=== PATIENT | female | born 1960 | race Caucasian/White ===

== ENCOUNTER 2018-03-12 13:44 | Outpatient (CLI) | payer BC | END 2018-03-12 13:45 | disposition home or self-care (01) | LOC: BICMAMMO 13:44 | PROVIDERS: ATTEND Family Medicine | DX: Z12.31 Encounter for screening mammogram for malignant neoplasm of breast (principal) | CPT/HCPCS: 77063; 77067 ==

== ENCOUNTER 2019-02-26 07:32 | Outpatient (CLI) | payer BC ==
--- NOTE | 2019-02-26 08:32 | ULT ---
Renal ultrasound: 02/26/2019 COMPARISON: None HISTORY: Hematuria TECHNIQUE: Multiplanar grayscale sonographic imaging of the kidneys and urinary bladder obtained. FINDINGS: Right kidney measures 10.8 x 3.9 x 4.5 cm. Punctate cortical calcification noted within mid pole right kidney. No hydronephrosis or mass lesion noted. Detailed assessment of the left kidney is limited secondary to bowel gas. Left kidney measures approx imately 10.3 x 5.2 x 5.5 cm and demonstrates no hydronephrosis or mass lesion. Punctate calcifications suspected in upper pole of left kidney. Urinary bladder is grossly unremarkable. IMPRESSION: No hydronephrosis or mass lesion. Punctate renal cortical calcification bilaterally.
== END 2019-02-26 07:33 | disposition home or self-care (01) ==
LOC: BICULT 07:32
PROVIDERS: ATTEND Family Medicine
DX: R31.9 Hematuria, unspecified (principal); N28.89 Other specified disorders of kidney and ureter
CPT/HCPCS: 76770

== ENCOUNTER 2019-03-13 08:33 | Outpatient (CLI) | payer BC ==
--- NOTE | 2019-03-13 10:00 | MMO ---
Bilateral MAMMO Bilat Screen [facility]. CLINICAL HISTORY: Patient is 58 years old and is seen for screening. The patient has no family history of breast cancer. The patient has no personal history of cancer. VIEWS: The views performed were: bilateral craniocaudal with tomosynthesis; bilateral mediolateral oblique with tomosynthesis; and bilateral exaggerated craniocaudal. FILMS COMPARED: The present examination has been compared to prior imaging studies performed at [facility] on 08/20/2009 and 04/06/2011, and at [facility] on 12/14/2015 and 03/12/2018. MAMMOGRAM FINDINGS: The breasts are heterogeneously dense, which could obscure a lesion on mammography. There is an asymmetry seen in the posterior central region of the left breast. In the right breast, there are no suspicious masses, calcifications or areas of architectural distortion. IMPRESSION: ASYMMETRY IN THE LEFT BREAST REQUIRES ADDITIONAL EVALUATION. RECOMMEND DIAGNOSTIC MAMMOGRAM. ULTRASOUND MAY ALSO PROVE USEFUL AT RECALL. THE RESULTS OF THIS EXAM WERE SENT TO THE PATIENT. ACR BI-RADS Category 0 - Incomplete: Need additional imaging evaluation. [facility] will notify the patient of the need for additional imaging services. MAMMOGRAPHY NOTE: 1. A negative mammogram report should not delay a biopsy if a dominant of clinically suspicious mass is present. 2. Approximately 10% to 15% of breast cancers are not detected by mammography. 3. Adenosis and dense breasts may obscure an underlying neoplasm.
== END 2019-03-13 08:34 | disposition home or self-care (01) ==
LOC: BICMAMMO 08:33
PROVIDERS: ATTEND Family Medicine
DX: Z12.31 Encounter for screening mammogram for malignant neoplasm of breast (principal); N64.89 Other specified disorders of breast
CPT/HCPCS: 77063; 77067

== ENCOUNTER 2019-03-14 13:40 | Outpatient (CLI) | payer BC ==
--- NOTE | 2019-03-14 14:02 | MMO ---
Left Breast MAMMO Unilat Diag [facility]. CLINICAL HISTORY: Patient is 58 years old and is seen for additional evaluation requested from prior study. The patient has no family history of breast cancer. The patient has no personal history of cancer. VIEWS: The views performed were: left craniocaudal spot compression with tomosynthesis and left mediolateral with tomosynthesis. FILMS COMPARED: The present examination has been compared to prior imaging studies performed at [facility] on 04/06/2011, and at [facility] on 12/14/2015, 03/12/2018 and 03/13/2019. MAMMOGRAM FINDINGS: The breast is heterogeneously dense, which could obscure a lesion on mammography. The asymmetry seen at screening mammography does not persist at additional imaging, compatible with superimposed tissue. There are no suspicious masses, suspicious calcifications, or new areas of architectural distortion. IMPRESSION: THERE IS NO MAMMOGRAPHIC EVIDENCE OF MALIGNANCY. A ROUTINE FOLLOW-UP MAMMOGRAM IN 1 YEAR IS RECOMMENDED. THE RESULTS OF THIS EXAM WERE SENT TO THE PATIENT. ACR BI-RADS Category 2 - Benign finding MAMMOGRAPHY NOTE: 1. A negative mammogram report should not delay a biopsy if a dominant of clinically suspicious mass is present. 2. Approximately 10% to 15% of breast cancers are not detected by mammography. 3. Adenosis and dense breasts may obscure an underlying neoplasm.
== END 2019-03-14 13:41 | disposition home or self-care (01) ==
LOC: BICMAMMO 13:40
PROVIDERS: ATTEND Family Medicine
DX: R92.2 Inconclusive mammogram (principal)
CPT/HCPCS: G0279

== ENCOUNTER 2019-04-15 08:31 | Outpatient (CLI) | payer BC ==
--- NOTE | 2019-04-15 09:36 | CT ---
CT ABDOMEN AND PELVIS WITH AND WITHOUT CONTRAST: Date: 04/15/2019 COMPARISON: None. HISTORY: Intermittent right lower pelvic pain, hematuria. TECHNIQUE: Axial CT imaging obtained at 3 mm intervals from the lung bases through the pubic symphysi s with and without IV contrast using a CT urogram protocol. Coronal and sagittal reformatted imaging obtained. FINDINGS: The visualized lung bases are unremarkable. No free intraperitoneal air or fluid is seen. The liver, spleen, gallbladder, pancreas, adrenal glands, and kidneys demonstrate no acute findings. There is a tiny hypodensity within the lower pole of the left kidney laterally measuring 5 mm, too small to characterize. There is no nephrolithiasis or evidence of obstructive uropathy on either side . Limited assessment of the bowel without contrast is unremarkable. Mild scattered atherosclerotic calc ification of the abdominal aorta and its branches noted. Urographic phase imaging is unremarkable as well. The uterus is enlarged and heterogeneous, suggesting a fibroid uterus. Uterus measures approximately 7.4 x 8.4 x 8.3 cm. No lymphadenopathy noted within the abdomen or pelvis. Review of the osseous structures demonstrates lower lumbar spine degenerative change, primarily affec ting the lumbosacral junction. IMPRESSION: 1. No evidence for obstructive uropathy or nephrolithiasis on either side. No suspicious renal mass noted on either side. 2. Findings suggesting an enlarged fibroid uterus, which could be best assessed via ultrasound. Transcribed Date/Time: 04/15/2019 9:50 AM
[2019-04-15] MEDS ORDERED: ISOVUE-370 76%-LOCM 1 ML ONE (13:39)
== END 2019-04-15 08:32 | disposition home or self-care (01) ==
LOC: BICCT 08:31
PROVIDERS: ATTEND Urology
DX: R31.29 Other microscopic hematuria (principal)
CPT/HCPCS: 74178; 82565

== ENCOUNTER 2020-03-31 11:43 | Outpatient (CLI) | payer OTHER, SELFPAY ==
--- NOTE | 2020-03-31 13:32 | MMO ---
Bilateral MAMMO Bilat Screen [facility]. CLINICAL HISTORY: Patient is 59 years old and is seen for screening. The patient has no family history of breast cancer. The patient has no personal history of cancer. VIEWS: The views performed were: bilateral craniocaudal with tomosynthesis and bilateral mediolateral oblique with tomosynthesis. FILMS COMPARED: The present examination has been compared to prior imaging studies performed at [facility] on 12/14/2015, 03/12/2018, 03/13/2019 and 03/14/2019. This study has been interpreted with the assistance of computer-aided detection. MAMMOGRAM FINDINGS: The breasts are heterogeneously dense, which could obscure a lesion on mammography. There are no suspicious masses, suspicious calcifications, or new areas of architectural distortion. IMPRESSION: THERE IS NO MAMMOGRAPHIC EVIDENCE OF MALIGNANCY. A ROUTINE FOLLOW-UP MAMMOGRAM IN 1 YEAR IS RECOMMENDED. THE RESULTS OF THIS EXAM WERE SENT TO THE PATIENT. ACR BI-RADS Category 1 - Negative MAMMOGRAPHY NOTE: 1. A negative mammogram report should not delay a biopsy if a dominant of clinically suspicious mass is present. 2. Approximately 10% to 15% of breast cancers are not detected by mammography. 3. Adenosis and dense breasts may obscure an underlying neoplasm. Reported by: WIL JAMES MD Electonically Signed: [id number]
== END 2020-03-31 11:44 | disposition home or self-care (01) ==
LOC: BICMAMMO 11:43
PROVIDERS: ATTEND Family Medicine
DX: Z12.31 Encounter for screening mammogram for malignant neoplasm of breast (principal)
CPT/HCPCS: 77063; 77067

== ENCOUNTER 2021-07-20 09:33 | Outpatient (CLI) | payer BC | END 2021-07-20 09:34 | disposition home or self-care (01) | LOC: BICMAMMO 09:33 | PROVIDERS: ATTEND Family Medicine | DX: Z12.31 Encounter for screening mammogram for malignant neoplasm of breast (principal) | CPT/HCPCS: 77063; 77067 ==